=== PATIENT | male | born 1985 | race African-American/Black ===

== ENCOUNTER 2016-11-22 20:43 | Emergency (ER) | payer OTHER ==
[2016-11-22 21:03] VITALS: BP 134/68; PULSE 86; TEMP 98.1; BMI 31.1
[2016-11-22] MEDS ORDERED: IBUPROFEN 600 MG TABLET (FP) PO ONE ×2 (21:36→21:50)
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
== END 2016-11-22 22:12 | disposition home or self-care (01) ==
LOC: FER 20:43
DX: S96.911A Strain of unspecified muscle and tendon at ankle and foot level, right foot, initial encounter (principal); S66.911A Strain of unspecified muscle, fascia and tendon at wrist and hand level, right hand, initial encounter; S29.012A Strain of muscle and tendon of back wall of thorax, initial encounter; V43.62XA Car passenger injured in collision with other type car in traffic accident, initial encounter; Y93.89 Activity, other specified; Y92.9 Unspecified place or not applicable; F17.210 Nicotine dependence, cigarettes, uncomplicated
CPT/HCPCS: 99281-25

== ENCOUNTER 2018-08-27 22:50 | Inpatient (IN) | payer OTHER ==
[~2018-08-27 22:50] MED LIST: MELATONIN 5 MG TABLETS PO PRN
[2018-08-27 23:12] VITALS: BMI 39.0
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
[2018-08-27] MEDS ORDERED: IBUPROFEN 400 MG TABLET (FP) PO PRN (23:32)
[2018-08-27] MEDS ORDERED: MAG HYDROX/AL HYDROX/SIMETH 30 ML UNIT-DOSE CUP PO PRN (23:32)
[2018-08-27] MEDS ORDERED: P-EPHED 60MG/TRIPROLIDI 2.5MG TABLET PO PRN (23:32)
[2018-08-27] MEDS ORDERED: NICOTINE POLACRILEX 2 MG GUM BC PRN (23:32)
[2018-08-27] MEDS ORDERED: guaiFENesin 200 MG/10 ML 10 ML UNIT-DOSE CUPS PO PRN (23:32)
[2018-08-27] MEDS ORDERED: hydrOXYzine PAMOATE 50 MG CAPSULE (FP) PO PRN (23:32)
[2018-08-27] MEDS ORDERED: ACETAMINOPHEN 325 MG TABLET (FP) PO PRN (23:32)
[2018-08-27] MEDS ORDERED: MAGNESIUM CITRATE 300 ML BOTTLE PO PRN (23:32)
[2018-08-27] MEDS ORDERED: LOPERAMIDE HCL 2 MG CAPSULE PO PRN (23:32)
[2018-08-27] MEDS ORDERED: MAGNESIUM HYDROX 2400MG/30ML ORAL SUSPENSION 30 ML CUP PO PRN (23:32)
[2018-08-27] MEDS ORDERED: MENTHOL/PHENOL 1 EACH UD MM PRN (23:32)
[2018-08-28] MEDS ORDERED: TUBERCULIN PPD 5 TU/0.1ML VIAL ID ONE (00:22)
[2018-08-28 06:59] VITALS: BP 130/77; PULSE 62; TEMP 98.2
[2018-08-28] MEDS ORDERED: MELATONIN 5 MG TABLETS PO PRN (09:11)
--- NOTE | 2018-08-28 09:11 | PN ---
S Progress Note Note: Patient seen for request to see psych as per RN. Patient denies past history of mental illness. Patient is alert and oriented x 3, amb on unit. Denies SI/HI. Reports having insomnia and hx of facial rash which he treats with Triamincinolone ointment. Patient denies any medical complaints today. Vital Signs Temperature 98.2 F 08/28/18 06:58 Pulse Rate 62 08/28/18 06:58 Respiratory Rate 18 08/28/18 06:58 Blood Pressure 130/77 08/28/18 06:58 O2 Sat by Pulse Oximetry (%) A/P: insomnia Hx of rash will order melatonin 10mg hs triamnicinolone ointment bid x 7 days continue to monitor clinically
[2018-08-28 09:57] LABS: MEAN PLT VOLUME 8.8 fl (7.5-11.1)
[2018-08-28 10:00] LABS: HEMATOCRIT 44.2 % (35.4-49); HEMOGLOBIN 14.8 GM/dL (11.7-16.9); MCH 26.7 pg (25.7-33.7); MCHC 33.4 g/dl (32.0-35.9); PLATELET COUNT 261 K/MM3 (134-434); RBC 5.52 M/mm3 (4.00-5.60); RDW 14.2 % (11.9-15.9); WHITE BLOOD COUNT 11.4 K/mm3 (4.0-10.0)
[2018-08-28] MEDS ORDERED: TRIAMCINOLONE ACET 0.025% OINTMENT 15 GM TUBE TP SCH (10:00)
[2018-08-28] MEDS ORDERED: PRENATAL VITAMINS W/ FOLIC ACID TABLET (FP) PO SCH (10:00)
[2018-08-28] MEDS ORDERED: NICOTINE 14 MG/24 HOURS TOPICAL PATCH TD SCH (10:00)
[2018-08-28 10:23] LABS: ALBUMIN 3.6 g/dl (3.4-5.0); BILIRUBIN,TOTAL 0.5 mg/dL (0.2-1); CALCIUM 9.1 mg/dL (8.5-10.1); POTASSIUM 4.1 mmol/L (3.5-5.1); TOT PROT 7.1 g/dl (6.4-8.2)
[2018-08-28 17:18] LABS: PH,URINE 6.5 (5.0-8.0); URINE APPEARANCE CLEAR; URINE BILIRUBIN NEGATIVE (NEGATIVE); URINE COLOR YELLOW; URINE GLUCOSE (UA) NEGATIVE (NEGATIVE); URINE KETONE NEGATIVE (NEGATIVE); URINE LEUK ESTERASE NEGATIVE (NEGATIVE); URINE NITRITE NEGATIVE (NEGATIVE); URINE PROTEIN NEGATIVE (NEGATIVE)
[2018-08-28] MEDS ORDERED: THIAMINE HCL 100 MG TABLET (FP) PO SCH (22:00)
== END 2018-08-28 11:08 | disposition left against medical advice (07) | DRG 770 ==
LOC: YASAS 22:50 → Y3W 23:53
PROVIDERS: ADMIT Neuromusculoskeletal Medicine & OMM; ATTEND Neuromusculoskeletal Medicine & OMM
PROC: HZ42ZZZ Group Counseling for Substance Abuse Treatment, Cognitive-Behavioral (ICD-10-PCS; principal; 2018-08-27)
DX: F16.20 Hallucinogen dependence, uncomplicated (principal); F17.210 Nicotine dependence, cigarettes, uncomplicated; F43.10 Post-traumatic stress disorder, unspecified; F19.24 Other psychoactive substance dependence with psychoactive substance-induced mood disorder; G47.00 Insomnia, unspecified
CPT/HCPCS: 36415; 80053; 81003; 85027; 86593